=== PATIENT | male | born 1980 | race Two or more races ===

== ENCOUNTER → 2025-05-25 | Outpatient (CLI) | payer MEDICARE, SELFPAY ==
--- NOTE | 2025-05-25 | XR_ITS ---
Examination: CT abdomen, without intravenous contrast. CT pelvis, without intravenous contrast. CT abdomen, with intravenous contrast. CT pelvis, with intravenous contrast. 2-D sagittal coronal reconstructions. Date and time of exam:May 25, 2025 0935 hours INDICATIONS: Right upper abdominal pain and constipation beginning 3 weeks ago CTDI: vol (mGy) 29.8. DLP: (mGycm) 1416 Technique: Multiple 3.0 axial images of the abdomen and pelvis without intravenous contrast, 3.0 mm slice thickness. Multiple 3.0 postcontrast images abdomen and pelvis also obtained, post intravenous injection 60 cc [id number] 2-D sagittal and coronal reconstructions. Low dose protocols were performed. One or more of the following dose reduction techniques were used; automated exposure control, adjustment of the mA and/or KV according to patient size, use of iterative reconstruction technique. Findings: Upper right lobe liver lesion, solid, 27 mm Cholelithiasis Spleen not enlarged No pancreatic or adrenal mass. No renal or ureteral calculi. Aorta normal size No pericecal inflammatory change 15 mm fat-containing umbilical hernia No bowel obstruction No diverticulitis Contracted urinary bladder Mild osteopenia IMPRESSION: 27 mm upper right lobe solid liver lesion, differential would include hepatic metastasis, primary hepatocellular carcinoma Recommend MRI abdomen liver follow-up pre and postcontrast Cholelithiasis
== END | disposition home or self-care (01) ==
PROVIDERS: PCP Nurse Practitioner; Referring Provider Nurse Practitioner; Visit Provider Nurse Practitioner
DX: K80.20 Calculus of gallbladder without cholecystitis without obstruction (principal); K76.9 Liver disease, unspecified
CPT/HCPCS: 74178; A4649; Q9967

== ENCOUNTER → 2025-06-26 | Outpatient (CLI) | payer MEDICARE, MEDICAID, SELFPAY ==
--- NOTE | 2025-06-26 16:00 | XR_ITS ---
Examination: MRI abdomen with intravenous contrast. MRI abdomen without intravenous contrast. Date and time of exam: June 26, 2025 1625 hours INDICATIONS: CT abdomen and pelvis May 25, 2025 upper right lobe liver lesion 27 mm Technique: Multiple axial, sagittal and coronal sections of the abdomen obtained. Transverse images, TR 6020, TE 107. T1 weighted transverse images, TR 582, TE 9.5. T2-weighted sagittal images, TR 4000, TE 105. T2-weighted sagittal images, TR 4000, TE 5. Coronal images, TR 4210, TE 107. Axial and coronal images are obtained post 19 cc intravenous injection, gadolinium. Findings: 30 x 23 mm posterior right lobe liver lesion with increased signal on the T2-weighted precontrast images This mass exhibits subtle nodular peripheral enhancement on the postcontrast images Gallstones Gallbladder wall is not thickened Normal common bile hepatic common bile duct Normal pancreas Spleen is not enlarged Aorta is normal in size No ascites No hydronephrosis IMPRESSION: Cholelithiasis 30 x 23 mm right lobe liver lesion with subtle peripheral nodular enhancement, consider hemangioma Recommend hepatic sonography follow-up for confirmation
== END | disposition home or self-care (01) ==
PROVIDERS: PCP Nurse Practitioner; Referring Provider Nurse Practitioner; Visit Provider Nurse Practitioner
DX: K80.20 Calculus of gallbladder without cholecystitis without obstruction (principal); K76.9 Liver disease, unspecified
CPT/HCPCS: 74183; A9579